=== PATIENT | female | born 1975 | race Caucasian/White ===

== ENCOUNTER 2020-11-01 21:40 | Emergency (ER) | payer SELFPAY ==
[~2020-11-01] VITALS: Ht 157.5 cm; Wt 72.7 kg
[2020-11-01 22:27] VITALS: BP 97/63
== END 2020-11-01 23:07 | disposition home or self-care (01) ==
LOC: EMS 21:40
DX: S66.211A Strain of extensor muscle, fascia and tendon of right thumb at wrist and hand level, initial encounter (principal); X50.0XXA Overexertion from strenuous movement or load, initial encounter; F17.210 Nicotine dependence, cigarettes, uncomplicated; Z90.710 Acquired absence of both cervix and uterus; X50.9XXA Other and unspecified overexertion or strenuous movements or postures, initial encounter; Y93.89 Activity, other specified; Y92.89 Other specified places as the place of occurrence of the external cause; Y99.8 Other external cause status
CPT/HCPCS: 99283